=== PATIENT | female | born 1935 | race Caucasian/White ===

== ENCOUNTER 2018-04-15 11:30 | Outpatient (RCR) | payer MEDICARE, BC, SELFPAY ==
--- NOTE | 2018-01-04 15:43 | HP.PTEVAL_ITS ---
Patient's Visit Information MEGAN CORONA is a 82 year old F referred to Physical Therapy by MD ARMINDA Mcgregor with a diagnosis of Lumbar Stenosis and DDD. Date of Evaluation: 01/04/18 Physical Therapist: Carlita Sanchez - Visit Plan Frequency: 2-3x /Week Duration: 6 Weeks Plan: 2-3X/ week for 6 weeks for AT for core stability, flexion biased exercises , LE strength, gait training and some balance with HEP - Subjective Subjective: Pt reports that years ago she had some Aquasize for awhile. Her current symptoms: pain in the R leg (stops at the knee)and back. If she sits for awhile she is ok but walking any distance increases her pain. This has been there for a year and did not go to him until she noticed she had to do something. She has trouble vaccumm. Washing dishes bothers her. She does ok on bus trips etc. She reports some tingling along the thigh that is there when she is walking. Pt had 3 sets of injections and they helped a little but not much - Pain back pain Pain Intensity (Out of 10): 0 Pain Intensity Range: 6 R leg pain Pain Intensity (Out of 10): 0 Pain Intensity Range: 7 - Objective Gait: walks with decrease stride length, decrease arm swing and slightly fw trunk. LE MMT: hip flex B 4-/5, knee ext 4/5 B, knee flex B 4-/5, able to do 1 /2 ROM bridge, hip abd B 4/5. Able to heel and toe raise without difficulty. Trunk AROM: flex 50%, ext 25%, SB B 75%. - SLR B. tight HS and gastroc complex B - Goals Goal 1:: I HEP Goal Time Frame: 4-6 Weeks Goal 2:: Decrease pain to 3/10 with doing dishes and sweeping floor. Goal Time Frame: 4-6 Weeks Goal 3:: Increase LE Strength by 1/2 muscle grade (MMT at time of eval: LE MMT: hip flex B 4-/5, knee ext 4/5 B, knee flex B 4-/5, able to do 1/2 ROM bridge, hip abd B 4/5). Goal Time Frame: 4-6 Weeks - Rehabilitation Potential Rehabilitation Potential: Good - Anticipated Interventions Patient/Client Instruction: Educate patient on: Condition For the Purpose of:: To decrease pain, To increase ROM, To improve nutrient delivery to tissue, To improve muscle performance and motor function, To improve ability to perform ADL's, To increase tolerance to activity/condition/ position, To improve performance and independence with ADL's, To improve gait and locomotor functions Therapeutic Exercise to Include: Strength training, Endurance training, Balance training, Postural training, Flexibilty training, In an aquatic setting, Active ROM, Dynamic Lumbar Stabilization, Scapular Strength/Stabilization For the Purpose of:: To decrease pain, To increase ROM, To improve nutrient delivery to tissue, To increase oxygenation perfusion, To improve muscle performance and motor function, To improve ability to perform ADL's, To increase tolerance to activity/condition/position Thank you for the opportunity to evaluate your patient. For Medicare and Medicare HMO plans, please review the plan of care and approve it. It will need to be FAXED BACK to us at [phone] for Medicare purposes. Please let me know if there are questions or concerns regarding this plan of care. Physician Signature: Date:
--- NOTE | 2018-02-08 12:09 | HP.PTEVAL_ITS ---
Patient's Visit Information MEGAN CORONA is a 82 year old F referred to Physical Therapy by MD ARMINDA Mcgregor with a diagnosis of Lumbar Stenosis and DDD. Date of Evaluation: 01/04/18 Physical Therapist: Carlita Sanchez - Visit Plan Frequency: 2-3x /Week Duration: 6 Weeks Plan: AT 2 X/ week for 3 weeks for AT for core stability, general mobility, LE strengthening, postural exercises, with HEP - Subjective Subjective: Pt reports that years ago she had some Aquasize for awhile. Her current symptoms: pain in the R leg (stops at the knee)and back. If she sits for awhile she is ok but walking any distance increases her pain. This has been there for a year and did not go to him until she noticed she had to do something. She has trouble vaccumm. Washing dishes bothers her. She does ok on bus trips etc. She reports some tingling along the thigh that is there when she is walking. Pt had 3 sets of injections and they helped a little but not much - Pain back pain Pain Intensity (Out of 10): 0 Pain Intensity Range: 6 R leg pain Pain Intensity (Out of 10): 0 Pain Intensity Range: 7 Comment: thigh, some in the groin - Objective Gait: walks with decrease stride length, decrease arm swing and slightly fw trunk. LE MMT: hip flex B 4-/5, knee ext 4/5 B, knee flex B 4-/5, able to do 1 /2 ROM bridge, hip abd B 4/5. Able to heel and toe raise without difficulty. Trunk AROM: flex 50%, ext 25%, SB B 75%. - SLR B. tight HS and gastroc complex B - Goals Goal 1:: I HEP Goal Time Frame: 4-6 Weeks Goal 2:: Decrease pain to 3/10 with doing dishes and sweeping floor. Goal Time Frame: 4-6 Weeks Goal 3:: Increase LE Strength by 1/2 muscle grade (MMT at time of eval: LE MMT: hip flex B 4-/5, knee ext 4/5 B, knee flex B 4-/5, able to do 1/2 ROM bridge, hip abd B 4/5). Goal Time Frame: 4-6 Weeks - Rehabilitation Potential Rehabilitation Potential: Good - Anticipated Interventions Patient/Client Instruction: Educate patient on: Condition For the Purpose of:: To decrease pain, To increase ROM, To improve nutrient delivery to tissue, To improve muscle performance and motor function, To improve ability to perform ADL's, To increase tolerance to activity/condition/ position, To improve performance and independence with ADL's, To improve gait and locomotor functions Therapeutic Exercise to Include: Strength training, Endurance training, Balance training, Postural training, Flexibilty training, In an aquatic setting, Active ROM, Dynamic Lumbar Stabilization, Scapular Strength/Stabilization For the Purpose of:: To decrease pain, To increase ROM, To improve nutrient delivery to tissue, To increase oxygenation perfusion, To improve muscle performance and motor function, To improve ability to perform ADL's, To increase tolerance to activity/condition/position Thank you for the opportunity to evaluate your patient. For Medicare and Medicare HMO plans, please review the plan of care and approve it. It will need to be FAXED BACK to us at [phone] for Medicare purposes. Please let me know if there are questions or concerns regarding this plan of care. Physician Signature: Date:
--- NOTE | 2018-02-08 12:16 | HP.PTREVAL_ITS ---
Shekhar Oglesby MD, It has been my pleasure to treat MEGAN CORONA over the last 10 visits for Lumbar Stenosis and DDD. Please see the progress note below for an update on the physical therapy plan of care! Subjective: Pt feesl that she is much better. She is still taking pain meds twice a day. She is feeling much better after therapy. She has been doing the exercises at home. She does not vaccum. She can do the dishes and do meals. Pt has not done much walking due to the weather. She wants to get back to walking on the TM. SHe some R leg pain but not nearly as much as she did. Remembering good posture has always helped. Pt reports that her sees improvements as well and she would like to continue with water therapy for a few additional weeks. Objective/Function: Trunk AROM: flex 50%, SB B 75%. LE MMT: hip flex B 4/5, knee ext B 4/5, B knee flex 4-/5, B hip abd 4-/5. Tights HS complex B. Pt is able to 1/4 ROM bridge Plan Plan: AT 2 X/ week for 3 weeks for AT for core stability, general mobility, LE strengthening, postural exercises, with HEP Goals Goal 1:: I HEP Goal Time Frame: 4-6 Weeks Goal Progress: Progressing Goal 2:: Decrease pain to 3/10 with doing dishes and sweeping floor. Goal Time Frame: 4-6 Weeks Goal Progress: Progressing Goal 3:: Increase LE Strength by 1/2 muscle grade (MMT at time of eval: LE MMT: hip flex B 4-/5, knee ext 4/5 B, knee flex B 4-/5, able to do 1/2 ROM bridge, hip abd B 4/5). Goal Time Frame: 4-6 Weeks Anticipated Interventions Patient/Client Instruction: Educate patient on: Condition For the Purpose of:: To decrease pain, To increase ROM, To improve nutrient delivery to tissue, To improve muscle performance and motor function, To improve ability to perform ADL's, To increase tolerance to activity/condition/ position, To improve performance and independence with ADL's, To improve gait and locomotor functions Therapeutic Exercise to Include: Strength training, Endurance training, Balance training, Postural training, Flexibilty training, In an aquatic setting, Active ROM, Dynamic Lumbar Stabilization, Scapular Strength/Stabilization For the Purpose of:: To decrease pain, To increase ROM, To improve nutrient delivery to tissue, To increase oxygenation perfusion, To improve muscle performance and motor function, To improve ability to perform ADL's, To increase tolerance to activity/condition/position Please do not hesitate to contact me at [phone] by phone or Fax: if you have questions or concerns regarding this new plan of care! Sincerely, Carlita Sanchez
--- NOTE | 2018-03-08 11:54 | HP.PTDCSUM ---
HP - PT D/C Summary It has been my pleasure to treat MEGAN CORONA under orders from Shekhar Oglesby MD, for the diagnosis of Lumbar Stenosis and DDD for a total of 17 visit(s). Discharge Date: 03/08/18 Please see the following information for a summary of their discharge status. - Subjective Subjective: Pt feesl that she has improved quite a bit. She has pain still in her back and down R thigh when she is more active. Still 5/10 pain with washing dishes or sweeping the floor. Pt wishes to continue her HEP on her own and not find a pool to continue AT in, as our pool times do not work in her schedule. - Pain back pain Pain Intensity (Out of 10): 3 R leg pain Pain Intensity (Out of 10): 1 - Overall Improvement % Improvement: 80 - Objective Objective/Function: LE MMT: B hip flex 4/5, B knee ext and knee flex 4/5, B hip abd 4/5, pt is able to do 3/4 ROM bridge. - Goals Goal 1:: I HEP Goal Progress: Goal Met Goal 2:: Decrease pain to 3/10 with doing dishes and sweeping floor. Goal Progress: Progressing Goal 3:: Increase LE Strength by 1/2 muscle grade (MMT at time of eval: LE MMT: hip flex B 4-/5, knee ext 4/5 B, knee flex B 4-/5, able to do 1/2 ROM bridge, hip abd B 4/5). Goal Progress: Goal Met - Plan Plan: DC PT to Home Exercise Program. Did give the pt a green band to be able to advance her midrows at home. - D/C Information Discharge Comments: DC PT to continue HEP. If there are questions or concerns regarding this patient's physical therapy, please feel free to call me at [phone]. Thank you for the referral of this patient. Sincerely, Carlita Sanchez
--- NOTE | 2018-03-22 14:17 | HP.PTREVAL_ITS ---
Shekhar Oglesby MD, It has been my pleasure to treat MEGAN CORONA over the last 18 visits for Lumbar Stenosis and DDD. Please see the progress note below for an update on the physical therapy plan of care! Subjective: Pt went back to the Dr and he said to either do another shot or do land therapy. She did not feel that the shot was very helpful. If she is on her feet very long her pain is about 4/10. Objective/Function: Pt had some trouble with form with 90/90 HS stretching. Plan Plan: 2X. week for 3 weeks for land based therapy for HS stretches, core stability, flexion of the spine, endurace geared toward HEP. May do some machines as well. Give HEP once pt able to do routine without trouble Goals Goal 1:: I HEP land based home exercise program with stretching, flexion and core stability Goal Time Frame: 4-6 Weeks Goal Progress: Progressing Goal 2:: Decrease pain to 3/10 with doing dishes and sweeping floor. Goal Time Frame: 4-6 Weeks Goal Progress: Progressing Goal 3:: Increase LE Strength by 1/2 muscle grade (MMT at time of eval: LE MMT: hip flex B 4-/5, knee ext 4/5 B, knee flex B 4-/5, able to do 1/2 ROM bridge, hip abd B 4/5). Goal Time Frame: 4-6 Weeks Goal Progress: Goal Met Anticipated Interventions Patient/Client Instruction: Educate patient on: Condition For the Purpose of:: To decrease pain, To increase ROM, To improve nutrient delivery to tissue, To improve muscle performance and motor function, To improve ability to perform ADL's, To increase tolerance to activity/condition/ position, To improve performance and independence with ADL's, To improve gait and locomotor functions Therapeutic Exercise to Include: Strength training, Endurance training, Balance training, Postural training, Flexibilty training, In an aquatic setting, Active ROM, Dynamic Lumbar Stabilization, Scapular Strength/Stabilization For the Purpose of:: To decrease pain, To increase ROM, To improve nutrient delivery to tissue, To increase oxygenation perfusion, To improve muscle performance and motor function, To improve ability to perform ADL's, To increase tolerance to activity/condition/position Please do not hesitate to contact me at [phone] by phone or Fax: if you have questions or concerns regarding this new plan of care! Sincerely, Carlita Sanchez
--- NOTE | 2018-04-15 12:06 | HP.PTDCSUM ---
HP - PT D/C Summary It has been my pleasure to treat MEGAN CORONA under orders from Shekhar Oglesby MD, for the diagnosis of Lumbar Stenosis and DDD for a total of 24 visit(s). Discharge Date: 04/15/18 Please see the following information for a summary of their discharge status. - Subjective Subjective: Pt reports that she still has about 4/10 pain standing doing dishes and sweeping the floor. - Pain back pain Pain Intensity (Out of 10): 4 R leg pain Pain Intensity (Out of 10): 0 - Overall Improvement % Improvement: 65 - Objective Objective/Function: Pt needed a little guidance with setting up equipment today.....but she feels confident that she can do it or ask for additional help if needed. - Goals Goal 1:: I HEP land based home exercise program with stretching, flexion and core stability Goal Progress: Goal Met Goal 2:: Decrease pain to 3/10 with doing dishes and sweeping floor. Goal Progress: Progressing Goal 3:: Increase LE Strength by 1/2 muscle grade (MMT at time of eval: LE MMT: hip flex B 4-/5, knee ext 4/5 B, knee flex B 4-/5, able to do 1/2 ROM bridge, hip abd B 4/5). Goal Progress: Goal Met - Plan Plan: DC to I H&W program. - D/C Information Discharge Comments: DC PT to [facility] If there are questions or concerns regarding this patient's physical therapy, please feel free to call me at [phone]. Thank you for the referral of this patient. Sincerely, Carlita Sanchez
== END 2018-04-15 16:12 | disposition home or self-care (01) ==
LOC: PT 11:30
PROVIDERS: Family Provider Family Medicine; PCP Family Medicine; Visit Provider Anesthesiology Pain Medicine
DX: M51.36 Other intervertebral disc degeneration, lumbar region (principal); M48.061 Spinal stenosis, lumbar region without neurogenic claudication
CPT/HCPCS: 97110; 97113; 97161; 97164; 97530